=== PATIENT | female | born 1955 | race Caucasian/White ===

== ENCOUNTER 2024-04-16 17:25 | Emergency (ER) | payer OTHER, SELFPAY ==
[2024-04-16] VITALS (7 sets, daily range): BP systolic 117–176; BP diastolic 66–90; PULSE 59–65; RESP 14–22; TEMP 36.2–36.6; O2SAT 95–98; BMI 44.6
--- NOTE | 2024-04-16 17:50 | NURSING ---
NO OLD EKGS
--- NOTE | 2024-04-16 17:59 | ED.VIS.CHEST ---
HPI History of Present Illness Chief Complaint: Chest Pain PFSH PFSH Allergy/AdvReac Type Severity Reaction Status Date / Time No Known Allergies Allergy Verified 04/16/24 17:25 Surgical History (Updated 04/16/24 @ 19:01 by Krystin Duong) History of coronary artery stent placement Social History Smoking Status: Never smoker EXAM Physical Exam Const Vital Signs: 04/16/24 17:25 04/16/24 17:36 04/16/24 18:25 Temperature 97.2 F L Temperature Source Temporal Pulse Rate 64 65 Respiratory Rate 18 22 H Respiratory Effort Non-Labored Short of Breath Blood Pressure 173/70 H 176/69 H Blood Pressure Mean 104 104 Pulse Ox 97 95 Oxygen Delivery Method Room Air Room Air 04/16/24 18:46 04/16/24 19:00 04/16/24 20:00 Temperature Temperature Source Pulse Rate 63 61 Respiratory Rate 22 H 14 Respiratory Effort Blood Pressure 151/66 H Blood Pressure Mean 94 Pulse Ox 95 95 Oxygen Delivery Method Room Air 04/16/24 21:23 04/16/24 22:00 04/16/24 22:39 Temperature 98 F Temperature Source Pulse Rate 62 59 L 63 Respiratory Rate 14 14 14 Respiratory Effort Blood Pressure 141/70 H 144/82 H 117/90 H Blood Pressure Mean 93 102 99 Pulse Ox 95 98 97 Oxygen Delivery Method MDM MDM MDM Narrative Medical decision making narrative: HISTORY OF PRESENT ILLNESS: 68-year-old female presents with chest pain. Notes constant chest pain is worse with exertion. This began 3 days ago. No vomiting. No bleeding diathesis. No cough fever chills. Patient denies sudden onset of pain, no tearing sensation, no migratory symptoms, no new numbness, weakness or loss of sensation. Patient denies family history or personal history of Marfan syndrome or Clemente-Danlos. The patient denies recent surgery in the last 4 weeks or immobilization in the last 3 days, denies previous diagnosis of DVT or PE, hemoptysis, unilateral leg swelling or malignancy with treatment the last 6 months. No estrogen use noted. REVIEW OF SYSTEMS: All other systems reviewed and are negative except as noted in the history of present illness. At least 10 review of systems reviewed and are negative except as noted in history of present illness. PHYSICAL EXAM: Nursing triage notes reviewed, Vital signs reviewed Constitutional: please see mdm HENT: MMM Eyes: Pupils equal round and reactive to light, Extraocular muscles intact Neck: No stridor, no JVD, full neck ROM Lungs: Clear to auscultation, No wheezing or rales. No increased work of breathing, no conversational dyspnea, no accessory muscle use, no nasal flaring. No respiratory distress noted Heart: Regular rate and rhythm, No murmurs, No rubs and No gallops, 2+ distal pulses (radial, femoral, posterior tibial) in all extremities Abdomen: Soft, there is no tenderness, rigidity, rebound or guarding, no obvious peritoneal signs, no palpable pulsatile abdominal masses, no auscultated abdominal bruit : No CVAT Extremities: No edema Neuro: No focal neurological deficits, cranial nerves II through XII intact, 5/5 strength in all extremities. Intact sensation to light touch in all extremities, 2+ reflexes bilateral patella tendons. Normal gait. No ataxia. Skin: No rash or lesions noted MEDICAL DECISION MAKING: Chief Complaint: Chest pain External records reviewed: No recent cardiac catheterizations, stress test or echocardiograms noted in the chart Factors affecting care: None reported History obtained from others: Consults: none MDM Narrative: Patient was hemodynamically stable, afebrile, nontoxic-appearing I considered the following differential diagnosis: ACS, arrhythmia, anemia, electrolyte abnormality, pneumonia, pneumothorax, GI etiology, PE PE less likely given low risk Wells score. Aortic dissection is thought to be less likely given no sudden ripping or tearing pain, migratory pain, palpable pulse inequalities, no focal neurologic deficits concurrent with chest pain. Chance of dissection less than 11/1999. Pericarditis less likely given no pathognomonic EKG changes (no diffuse ST elevations, WA depressions). GI etiology (i.e. Boerhaave syndrome) less likely given no chest or neck crepitus, no vomiting or forced retching. ALL IMAGES (IF OBTAINED) HAVE BEEN PERSONALLY REVIEWED AND INTERPRETED BY MYSELF. EKG with normal sinus rhythm, left axis deviation, no STEMI High-sensitivity troponin is negative, no evidence of myocardial ischemia x 2 CBC without leukocytosis, severe anemia, no thrombocytopenia. BMP without evidence of significant electrolyte abnormalities, no anion gap, no acute kidney injury. BNP within normal limits suggesting no heart heart failure The synthesis of the patient history, physical exam, labs images suggest no acute life-limiting etiology. I completed a HEART Score to screen for Major Adverse Cardiac Event (MACE) in this patient. The evidence indicates that the patient is very low risk for MACE and this is consistent with my clinical intuition. The risk of further workup or hospitalization for MACE is likely higher than the risk of the patient having a MACE. It is, therefore, in the patient?s best interest not to do additional emergent testing or to be hospitalized for MACE at this time. Shared Decision-Making No hospitalization indicated I have discussed with the patient my clinical impression and the result of the HEART Score to screen for MACE, as well as the risks of further testing and hospitalization. The HEART Score shows that the risk for MACE is less than 1%. Although the risk of MACE has not been completely eliminated, the risks of further testing or hospitalization for MACE likely exceed any potential benefit, and the patient agrees with not pursuing further emergent evaluation or hospitalization for MACE at this time. The patient and/or family, caregivers express understanding. The patient and/or family, caregivers agrees with the plan. Total critical care time today provided was at least 0 minutes. This excludes separately billable procedures. Critical care time (if documented) is secondary to the patient having high probability of clinically significant/life threatening deterioration in the patient's condition which required my urgent intervention. Impression: 1. Chest pain 2. Hyperglycemia Disposition: Discharge home Nico Crespo, DO Lab Data Labs: Laboratory Results - last 24 hr 04/16/24 04/16/24 18:30 20:50 WBC 8.6 RBC 4.85 Hgb 13.9 Hct 42.0 MCV 86.6 MCH 28.7 MCHC 33.1 RDW Std Deviation 39.9 RDW Coeff of Luis 12.8 Plt Count 215 MPV 9.0 Immature Gran % (Auto) 0.300 Neut % (Auto) 55.4 Lymph % (Auto) 35.2 Sandoval % (Auto) 7.6 Eos % (Auto) 1.3 Baso % (Auto) 0.2 Absolute Neuts (auto) 4.8 Absolute Lymphs (auto) 3.02 Nucleated RBC % 0 Sodium 139 Potassium 3.7 Chloride 101 Carbon Dioxide 31.0 Anion Gap 7 BUN 15 Creatinine 0.84 Estim Creat Clear Calc 70.34 Est GFR (MDRD) Af Amer 86 Est GFR (MDRD) Non-Af 71 BUN/Creatinine Ratio 17.8 Glucose 144 H Calcium 9.4 Troponin I High Sens 4 4 B-Natriuretic Peptide 11.1 Radiography Diagnostic Testing: Clinical Impression(s) from Imaging Studies Chest X-Ray 04/16/24 18:30 IMPRESSION: No focal infiltrate or edema. Electronically Signed: Zen Betancur MD at 18:54 EDT , Discharge Plan Triage Chief Complaint: Chest Pain ED Provider: Nico Crespo Dx/Rx/DC Orders Instructions: Chest Pain [facility] Primary Care Provider: Jai Davis Referrals: [facility] Doctor,Out of [Non-Staff] - Activity Restrictions/Additional Instructions: Thank you for trusting us with your care today! Please take Tylenol (2 pills, 650 mg), ibuprofen (2 pills, 400 mg) every 6 hours as needed for pain and fever control. Please return to the emergency department if your symptoms change or worsen. Please follow with your primary care physician for further outpatient evaluation and management. Print Language: Hebrew Disposition Disposition: Home, Self Care Discharge Date/Time: 04/16/24 22:42
--- NOTE | 2024-04-16 18:05 | EKG12_ITS ---
Test Reason : CHEST PAIN Blood Pressure : / mmHG Vent. Rate : 069 BPM Atrial Rate : 069 BPM P-R Int : 202 ms QRS Dur : 098 ms QT Int : 440 ms P-R-T Axes : 009 -10 -06 degrees QTc Int : 471 ms Normal sinus rhythm Normal ECG Confirmed by Giovanni Gaytan ([id number]), manager editorial DAMEON BENZ ([id number]) on 04/17/2024 1:06:42 PM Referred By: Confirmed By:Giovanni Gaytan
--- NOTE | 2024-04-16 18:09 | NURSING ---
NO OLD EKGS
--- NOTE | 2024-04-16 18:30 | RAD_ITS ---
STUDY: X-RAY CHEST REASON FOR EXAM: Female, 68 years old. Chest pain TECHNIQUE: Single AP portable view of the chest. COMPARISON: None. FINDINGS: The lungs are clear and expanded. There is no demonstrated pleural abnormality. There is mild cardiac enlargement. Normal mediastinum and corona. Normal visualized pulmonary arteries. There is atherosclerotic calcification of the aortic arch. Normal visualized thoracic spine. Normal visualized ribs, clavicles, and shoulders. There is no demonstrated abnormality of the visualized soft tissue structures of the upper abdomen. RAD/Chest 1 View (Portable) IMPRESSION: No focal infiltrate or edema. Electronically Signed: Zen Betancur MD at 18:54 EDT ,
[2024-04-16 18:41] LABS: Absolute Lymphocyte Count 3.02 X10^3/uL (0.83-4.51); Absolute Neutrophil Count 4.8 X10^3/uL (2.0-7.7); Basophil# 0.02 X10^3/uL; Basophil% 0.2 % (0-1); Eosinophil# 0.11 X10^3/uL; Eosinophils% 1.3 % (0-5); Hemoglobin 13.9 g/dL (12.0-15.0); Lymphocyte # 3.02 X10^3/ul (0.83-4.51); Lymphocyte % 35.2 % (19-41); Mean Corp Hgb Conc 33.1 g/dL (32-36); Mean Corpuscular Hgb 28.7 pg (27.0-32.0); Mean Corpuscular Volume 86.6 fL (81-99); Monocyte# 0.65 X10^3/uL; Monocyte% 7.6 % (0-10); NRBC Flagged by Analyzer 0 % (0-5); Neutrophil # 4.76 X10^3/uL (2.7-7.7); Neutrophil % 55.4 % (47-70); Platelet Count 215 K/mm3 (150-450); RBC Distribution Width CV 12.8 % (11.6-14.6); RBC Distribution Width SD 39.9 fl (35.1-43.9); Red Blood Count 4.85 M/mm3 (4.2-5.4); White Blood Count 8.6 K/mm3 (4.4-11.0)
[2024-04-16] MEDS: Aspirin 81 MG TAB.CHEW 324 MG PO (18:44)
[2024-04-16 18:55] LABS: BNP,B-Type NATRIURETIC PEPTIDE 11.1 pg/mL (0-100)
[2024-04-16 18:59] LABS: Anion Gap 7 (5-15); BUN 15 mg/dL (7-18); BUN/Creat Ratio 17.8 RATIO (10-20); Calcium,Total 9.4 mg/dL (8.5-10.1); Chloride 101 mmol/L (98-107); Creatinine, Serum 0.84 mg/dL (0.55-1.02); EST Glomerular Filtration Rate 71 mL/min (>60); Est Glom Filt Rate - Afr Amer 86 mL/min (>60); Estimated Creatinine Clearance 70.34 ml/min; Glucose 144 mg/dL (74-106); Potassium 3.7 mmol/L (3.5-5.1); Sodium Level 139 mmol/L (136-145); Troponin-I HS (w/2H Reflex) 4 pg/mL (3.0-54.0)
[2024-04-16 20:38] LABS: Reflex Troponin-HS? (from REC) Y
[2024-04-16 21:16] LABS: Troponin-I HS 4 pg/mL (3.0-54.0)
== END 2024-04-16 22:42 | disposition home or self-care (01) ==
PROVIDERS: Emergency Provider Emergency Medicine; PCP Family Medicine; Visit Provider Emergency Medicine
DX: R07.9 Chest pain, unspecified (principal); R73.9 Hyperglycemia, unspecified; Z95.5 Presence of coronary angioplasty implant and graft
CPT/HCPCS: 71045; 80048; 83880; 84484; 85025; 93005; 99283; A4216